=== PATIENT | female | born 1995 | race Caucasian/White ===

== ENCOUNTER 2024-10-02 11:04 | Emergency (ER) | payer BC, SELFPAY ==
--- NOTE | 2024-10-02 | ECG_ITS ---
Test Reason : Shortness of breath Blood Pressure : */* mmHG Vent. Rate : 56 BPM Atrial Rate : 56 BPM P-R Int : 198 ms QRS Dur : 90 ms QT Int : 402 ms P-R-T Axes : 2 185 20 degrees QTcB Int : 387 ms Sinus bradycardia Right superior axis deviation Low voltage QRS Abnormal ECG No previous ECGs available Referred By: Homar Razo Electronically Signed By: José Luis Nichols
--- NOTE | ~2024-10-02 | XR_ITS ---
EXAMINATION: XR CHEST 2 VIEWS HISTORY: pain COMPARISON: There are no prior studies for comparison. FINDINGS: PA and lateral views of the chest are submitted. The lungs are expanded and clear. There is no pleural effusion, pneumothorax, or pulmonary vascular congestion. The heart is normal in size. The bones are intact. XR/XR chest 2V IMPRESSION: Normal examination of the chest. Electronically signed by: Montana Odom MD 10/02/2024 11:55 AM EDT
--- NOTE | ~2024-10-02 | CT_ITS ---
EXAMINATION: CT ANGIOGRAM CHEST CLINICAL INFORMATION: Dyspnea, rule out PE. COMPARISON: None available. TECHNIQUE: Multiple axial images were obtained through the chest after the administration of 50 mL of Omnipaque 350 intravenous contrast. Extensive vascular post-processing including two-dimensional and three-dimensional reformatted images were created and reviewed on an independent workstation. This CT examination was performed using dose optimization techniques as appropriate, variously including the following: *Automated exposure control *Adjustment of mA and/or kV according to patient size (this includes techniques or standardized protocols for targeted exams where dose is matched to indication/reason for exam; i.e. extremities or head) *Use of iterative reconstruction technique FINDINGS: VASCULAR: There is no evidence of pulmonary embolus. Main pulmonary artery is normal in size. The aorta is normal in caliber and course. The heart size is normal. There is no pericardial effusion. Great vessels branch normally and are patent. LUNGS: The lungs are clear bilaterally. The small airways are normal. There is no effusion or pneumothorax. There is no interstitial lung disease. The central airways are patent. There are no suspicious nodules. PLEURA: There is no pleural effusion. No pleural mass or thickening. MEDIASTINUM: A small amount of triangular soft tissue opacity in the anterior/superior mediastinum is consistent with thymic remnant. There is no mass or lymphadenopathy. The esophagus is normal. AXILLA/CHEST WALL: No mass or lymphadenopathy. Normal appearance. UPPER ABDOMEN: Imaged upper abdominal contents appear normal. OSSEOUS STRUCTURES: No suspicious lytic or blastic bone lesions. Normal appearance. CT/CT angio chest PE protocol IMPRESSION: 1. No evidence of pulmonary embolus. 2. No evidence of acute aortic syndrome. 3. The lungs are clear without active disease. Electronically signed by: Jet Hidalgo MD 10/02/2024 04:14 PM EDT
--- NOTE | ~2024-10-02 | CT_ITS ---
EXAMINATION: CT SOFT TISSUE NECK WITHOUT CONTRAST CLINICAL INFORMATION: Dyspnea, feels obstruction. COMPARISON: None available. TECHNIQUE: Following the intravenous administration of 100 mL of Omnipaque 350 intravenous contrast, helical imaging was performed in the axial plane with generation of coronal and sagittal reformatted images. This CT examination was performed using dose optimization techniques as appropriate, variously including the following: *Automated exposure control *Adjustment of mA and/or kV according to patient size (this includes techniques or standardized protocols for targeted exams where dose is matched to indication/reason for exam; i.e. extremities or head) *Use of iterative reconstruction technique FINDINGS: -Study is significantly limited without the benefit of IV contrast. Lymph Nodes: -No abnormal lymphadenopathy. Carotid Sheath Structures: -Normal. Salivary Glands: -Normal. Tongue Base/Floor of Mouth: -Normal Mucosal Space: -Normal. No lesions. Airway is maintained. Visceral Space: -Thyroid gland: Normal. -Larynx is normal. -Subglottic trachea is patent. Retropharangeal Space: - Normal. Parapharyngeal Fat Planes: -Normal. Car Groomer Spaces: -Normal. Anterior Cervical Space: -Normal. Imaged Intracranial Contents: -No mass effect, edema, or abnormal enhancement. Cortical and dural venous sinuses are patent. The skull base is normal. Globes and Orbits: -Normal. Paranasal Sinuses/Mastoids/Tympanic Spaces: -Normally aerated bilaterally. Lung Apices and Superior Mediastinal Structures: -Refer to the dedicated chest CT performed concurrently. Bony Structures: -No suspicious bone lesions. No fractures. -Normal TM joints. CT/CT soft tissue neck wo IV con IMPRESSION: Study somewhat limited without the benefit of IV contrast. 1. No acute findings in the neck. No mass or abnormal lymphadenopathy. Airway is maintained throughout. Electronically signed by: Jet Hidalgo MD 10/02/2024 04:09 PM EDT
[2024-10-02 11:14] VITALS: BP 134/87; PULSE 70; RESP 18; TEMP 36.8; O2SAT 98; BMI 37.8
--- NOTE | 2024-10-02 11:15 | ED_ITS ---
HPI - General Adult General Chief complaint: Dyspnea Stated complaint: SOB Time Seen by Provider: 10/02/24 12:59 Source: patient and other (patient's boyfriend) Mode of arrival: ambulatory Limitations: no limitations History of Present Illness ED Provider: Aisha Avilez PA-C HPI narrative: 29 y.o female with no reported past medical history reports to the ED with a chief complaint of shortness of breath while exercising and at rest. Patient reports that she feels as if she cannot take a full breath, this has been worsening over the past 2 weeks and her PCP advised her to come to the emergency room. She states that she has had breathing issues since she was 11, but has seen a switch tender and does not have asthma. Patient states that she has always has neck pain, and her breathing feels worse when she contracts her chin - specifically like she has something in her throat that goes backwards. Patient denies dizziness, syncope, chest pain or abdominal pain. MD complaint: SOB with exercise and rest Relieving factors: none Exacerbating factors: movement Associated symptoms: shortness of breath Related Data Previous Rx's ?Medication ?Instructions ?Recorded albuterol sulfate 90 mcg/actuation 1 puff inhalation QID PRN before 10/02/24 aerosol inhaler exercise #8.5 grams Allergies Allergy/AdvReac Type Severity Reaction Status Date / Time oyster extract Allergy Unknown Verified 10/02/24 11:18 peanut Allergy Unknown Verified 10/02/24 11:18 Penicillins Allergy Unknown Verified 10/02/24 11:18 Review of Systems 2 Constitutional: Constitutional: Reports no additional constitutional complaints, Denies chills, Denies fever(s) and Denies night sweats Eyes: Eyes: Reports no additional eye complaints, Denies blurry vision, Denies change in vision, Denies diplopia, Denies eye discharge, Denies loss of vision and Denies eye pain ENT: Denies dizziness Comments: globus sensation when laying down Cardiovascular: Cardiovascular: Reports no additional cardiovascular complaints, Denies chest pain, Denies lightheadedness, Denies Loss of Consciousness, Reports dyspnea and Reports dyspnea on exertion (and without) Respiratory: Respiratory: Reports dyspnea and Reports dyspnea on exertion (and without) Gastrointestinal: Gastrointestinal: Reports no additional gastrointestinal complaints, Denies abdominal pain, Denies melena, Denies hematochezia, Denies change in bowel habits and Denies change in stool character Genitourinary: Genitourinary: Denies hematuria, Denies urinary frequency, Denies dysuria, Denies urinary incontinence, Denies urinary hesitancy and Denies urinary urgency Musculoskeletal: Musculoskeletal: Reports no additional musculoskeletal complaints, Denies numbness and Denies tingling Neurologic: Denies dizziness, Denies loss of vision, Denies numbness and Denies tingling Psychiatric: Psychiatric: Reports no additional psychiatric complaints Endocrine: Endocrine: Reports no additional endocrine complaints Hematologic/Lymphatic: Hematologic/Lymphatic: Reports no additional hematologic/lymphatic complaints Allergic/Immunologic: Allergic/Immunologic: Reports no additional allergic/immunologic complaints PMFSH Past Medical History Attestation statement: The following information was validated with the patient. (all information validated with the patient's boyfriend) Source: old records reviewed, nursing notes reviewed and other (patient's boyfriend provided additional history and confirmed the history provided by the patient. ) Social History Social History Smoked in Last 30 Days: No Substance Use Type: Marijuana Substance Use Frequency: Occasionally Advance Directives: No Advance Directives Information Provided: Yes Physical Exam ED Vital Signs: Vital Signs - 24 hr 10/02/24 11:14 10/02/24 12:00 10/02/24 13:14 Temperature 98.3 F 97.3 F Pulse Rate 70 62 70 Respiratory Rate 18 16 13 Blood Pressure 134/87 113/58 L 126/80 Pulse Oximetry 98 99 100 Oxygen Delivery Method Room Air Room Air 10/02/24 14:00 10/02/24 16:00 10/02/24 16:49 Temperature 98.1 F 98.3 F 98.3 F Pulse Rate 62 81 81 Respiratory Rate 16 16 16 Blood Pressure 121/70 100/63 100/63 Pulse Oximetry 100 98 98 Oxygen Delivery Method Room Air Room Air Room Air BMI result Body Mass Index 37.8 Const General: cooperative, no acute distress, alert and awake Nutritional Appearance: well nourished Orientation/consciousness: patient oriented x3 HENMT Head: Yes normal to inspection and Yes atraumatic Ears: hearing grossly normal bilaterally and external ears normal General nose exam: Normal external nose present, no nasal discharge noted and no epistaxis Face and sinus: Yes normal facial exam, No abrasion and No laceration Mouth: Normal oral and palatal mucosa present, no drooling and no muffled voice Eyes General: appearance normal, both eyes and all related structures Periorbital: periorbital findings normal Eyelids: Yes eyelids normal Conjunctivae: conjunctivae normal Pupils: Equal, round and reactive pupils present EOM: EOMs intact bilaterally Neck Neck: Yes normal visual inspection, Yes full ROM and Yes no lymphadenopathy Resp Effort & Inspection: normal respiratory effort and able to speak in complete sentences Neuro General: patient oriented x3, moves all extremities and CN's II-XI intact bilaterally Cranial nerves: Yes Equal, round and reactive pupils present Cognition (Neuro): normal cognition Extrem General: Yes normal to inspection, Yes full ROM and Yes capillary refill normal Psych Appearance: grossly normal Mental Status: mental status grossly normal Affect: normal affect Attitude: cooperative Thought process: Normal thought process present Thought content: Normal thought content present Insight: Good insight present (Psych) Course Course Course Narrative: RME, this is a rapid medical exam performed by Jonathon Razo please refer to primary provider for complete H&P- 29-year-old female presents for evaluation of worsening shortness of breath for the last couple of weeks. She reports that her symptoms are not interfering with her workouts and she has not been sleeping at night. Plan for EKG, chest x-ray, labs. Medications Administered Discontinued Medications Generic Name Dose Route Start Last Admin Trade Name Freq PRN Reason Stop Dose Admin Iohexol 65 ml 10/02/24 15:54 10/02/24 15:54 Iohexol 350 Mg/Ml 100 Ml Infus..Btl IV 10/02/24 15:55 65 ml ONCE ONE Administration Medical Decision Making Medical Decision Making [facility] Narrative: Patient is a 29 year old assigned female at with no reported medical history presenting to the emergency department today with shortness of breath and globus sensation in her throat when laying. Patient's physical exam was unremarkable. Patient's blood work was unremarkable. Patient's EKG was unremarkable. Patient's chest x-ray, CT PE study of the chest, and CT soft tissue of the neck showed no acute process. I explained my physical exam findings as well as all test results to the patient and the patient's boyfriend. I answered all questions asked by the patient and the patient's boyfriend. Patient prescribed an albuterol inhaler to use prior to exercising. I stressed the importance of the patient taking her medication as directed (either prescribed or as the over the counter packaging recommends). I stressed the importance of the patient following up with her primary care provider. I stressed the importance of the patient returning to the emergency department immediately if her symptoms were to worsen or if she were to develop any dizziness, shortness of breath, difficulty breathing, chest pain, blurry vision, loss of vision, nausea, vomiting, abdominal pain, fever, chills, back pain, or any other complaints. Patient verbalized agreement and understanding with this treatment plan and discharge. Differential Diagnosis Differential Diagnoses: The differential diagnosis associated with the presentation includes SOB of unknown etiology Exercise induced reactive airway disease Globus sensation Sleep apnea Admission/Observation Consideration of admission/observation: Escalation of care including admission/observation considered Patient would have been admitted to the hospital had her work up had any findings where hospital admission was appropriate and her clinical presentation warranted hospital admission. Lab Data [facility] Lab Attestation statement: I reviewed the patient's lab results. My interpretation of these results are in the [facility] Rationale portion of this note. 10/02/24 11:38 10/02/24 11:37 Labs: Lab Results 10/02/24 10/02/24 10/02/24 Range/Units 11:37 11:38 11:59 WBC 8.2 (4.8-10.8) X10*3/uL RBC 4.43 (4.20-5.50) X10*6/uL Hgb 13.1 (12.0-16.0) g/dl Hct 39.2 (37.0-47.0) % MCV 88.5 (80.0-98.0) fL MCH 29.6 (27.0-33.0) pg MCHC 33.4 (31.0-35.0) g/dl RDW 12.3 (11.0-16.0) % Plt Count 244 (160-400) X10*3/uL MPV 9.7 (9.4-12.3) fL Immature Gran % (Auto) 0.2 (0.0-0.4) % Neut % (Auto) 60.2 (45-73) % Lymph % (Auto) 30.6 (20-40) % [place] % (Auto) 7.6 (2-11) % Eos % (Auto) 1.0 (0-4) % Baso % (Auto) 0.4 (0-2) % Lymph # (Auto) 2.5 (1.2-4.9) X10*3/uL [place] # (Auto) 0.6 (0.1-1.2) X10*3/uL Eos # (Auto) 0.1 (0.0-0.4) X10*3/uL Baso # (Auto) 0.0 (0.0-0.2) X10*3/uL Abs Immat Gran (auto) 0.02 (0.00-0.03) X10*3/uL Absolute Neuts (auto) 5.0 (2.0-8.3) x10*3/uL Absolute Nucleated RBC 0.000 (0.0-0.012) X10*3/uL Nucleated RBC % (auto) 0.0 (0.0-0.2) /100WBC Sodium 141 (135-145) mmol/L Potassium 4.2 (3.3-5.1) mmol/L Chloride 107 (96-108) mmol/L Carbon Dioxide 28 (22-29) mmol/L Anion Gap 10 L (12-20) BUN 20 H (9-16) mg/dL Creatinine 0.82 (0.5-1.4) mg/dL Estim Creat Clear Calc 114.2 Estimated GFR > 60 Random Glucose 87 (60-115) mg/dL Calcium 9.5 (8.4-10.2) mg/dL Total Bilirubin 0.3 (0.0-1.0) mg/dL AST 26 (5-31) U/L ALT 18 (0-31) U/L Alkaline Phosphatase 67 (39-117) U/L Troponin I High Sens 4.7 (<3.5-17.0) ng/L Total Protein 7.2 (6.5-8.0) g/dL Albumin 4.5 (3.5-5.0) g/dL TSH 1.52 (0.32-4.0) uIU/mL Beta HCG, Quant < 2 mIU/mL Urine Color Yellow Urine Appearance Clear Urine pH 6.0 (5.0-9.0) Ur Specific [place] 1.010 (1.005-1.025) Urine Protein Negative (Neg-Trace) mg/dL Urine Glucose (UA) Negative (Negative) mg/dL Urine Ketones Negative (Negative) mg/dL Urine Blood Negative (Negative) Urine Nitrite Negative (Negative) Ur Leukocyte Esterase Negative (Negative) Urine RBC 0-2 (0-2) /HPF Urine WBC 0-5 (0-5) /HPF Ur Squamous Epith Cells 0-2 (0-2) /HPF Urine Bacteria None Seen (None Seen) Hyaline Casts 0-2 (0-2) /LPF Influenza Type A (PCR) NEGATIVE (Negative) Influenza Type B (PCR) NEGATIVE (Negative) RSV RNA Qual (PCR) NEGATIVE (Negative) SARS-CoV-2 RNA (RT-PCR) NEGATIVE (Negative) Independent Interpretation I performed an independent interpretation of an: EKG, Plain X-Ray and CT Scan Interpretation: My interpretation is in agreement with the radiologist's impression of these imaging studies. L EXAMINATION: XR CHEST 2 VIEWS HISTORY: pain COMPARISON: There are no prior studies for comparison. FINDINGS: PA and lateral views of the chest are submitted. The lungs are expanded and clear. There is no pleural effusion, pneumothorax, or pulmonary vascular congestion. The heart is normal in size. The bones are intact. XR/XR chest 2V IMPRESSION: Normal examination of the chest. Electronically signed by: Montana Odom MD 10/02/2024 11:55 AM EDT Dictated By: Montana Odom MD Signed By: Electronically signed by Montana Odom MD 10/02/24 1155 Report Number: [id number]: Total DLP = 338.38 mGy-cm EXAMINATION: CT ANGIOGRAM CHEST CLINICAL INFORMATION: Dyspnea, rule out PE. COMPARISON: None available. TECHNIQUE: Multiple axial images were obtained through the chest after the administration of 50 mL of Omnipaque 350 intravenous contrast. Extensive vascular post-processing including two-dimensional and three- dimensional reformatted images were created and reviewed on an independent workstation. This CT examination was performed using dose optimization techniques as appropriate, variously including the following: *Automated exposure control *Adjustment of mA and/or kV according to patient size (this includes techniques or standardized protocols for targeted exams where dose is matched to indication/reason for exam; i.e. extremities or head) *Use of iterative reconstruction technique FINDINGS: VASCULAR: There is no evidence of pulmonary embolus. Main pulmonary artery is normal in size. The aorta is normal in caliber and course. The heart size is normal. There is no pericardial effusion. Great vessels branch normally and are patent. LUNGS: The lungs are clear bilaterally. The small airways are normal. There is no effusion or pneumothorax. There is no interstitial lung disease. The central airways are patent. There are no suspicious nodules. PLEURA: There is no pleural effusion. No pleural mass or thickening. MEDIASTINUM: A small amount of triangular soft tissue opacity in the anterior/superior mediastinum is consistent with thymic remnant. There is no mass or lymphadenopathy. The esophagus is normal. AXILLA/CHEST WALL: No mass or lymphadenopathy. Normal appearance. UPPER ABDOMEN: Imaged upper abdominal contents appear normal. OSSEOUS STRUCTURES: No suspicious lytic or blastic bone lesions. Normal appearance. CT/CT angio chest PE protocol IMPRESSION: 1. No evidence of pulmonary embolus. 2. No evidence of acute aortic syndrome. 3. The lungs are clear without active disease. Electronically signed by: Jet Hidalgo MD 10/02/2024 04:14 PM EDT Dictated By: Jet Hidalgo MD Signed By: Electronically signed by Jet Hidalgo MD 10/02/24 1614 Report Number: [id number]: Total DLP = 629.62 mGy-cm EXAMINATION: CT SOFT TISSUE NECK WITHOUT CONTRAST CLINICAL INFORMATION: Dyspnea, feels obstruction. COMPARISON: None available. TECHNIQUE: Following the intravenous administration of 100 mL of Omnipaque 350 intravenous contrast, helical imaging was performed in the axial plane with generation of coronal and sagittal reformatted images. This CT examination was performed using dose optimization techniques as appropriate, variously including the following: *Automated exposure control *Adjustment of mA and/or kV according to patient size (this includes techniques or standardized protocols for targeted exams where dose is matched to indication/reason for exam; i.e. extremities or head) *Use of iterative reconstruction technique FINDINGS: -Study is significantly limited without the benefit of IV contrast. Lymph Nodes: -No abnormal lymphadenopathy. Carotid Sheath Structures: -Normal. Salivary Glands: -Normal. Tongue Base/Floor of Mouth: -Normal Mucosal Space: -Normal. No lesions. Airway is maintained. Visceral Space: -Thyroid gland: Normal. -Larynx is normal. -Subglottic trachea is patent. Retropharangeal Space: - Normal. Parapharyngeal Fat Planes: -Normal. Oven Heater Helper Spaces: -Normal. Anterior Cervical Space: -Normal. Imaged Intracranial Contents: -No mass effect, edema, or abnormal enhancement. Cortical and dural venous sinuses are patent. The skull base is normal. Globes and Orbits: -Normal. Paranasal Sinuses/Mastoids/Tympanic Spaces: -Normally aerated bilaterally. Lung Apices and Superior Mediastinal Structures: -Refer to the dedicated chest CT performed concurrently. Bony Structures: -No suspicious bone lesions. No fractures. -Normal TM joints. CT/CT soft tissue neck wo IV con IMPRESSION: Study somewhat limited without the benefit of IV contrast. 1. No acute findings in the neck. No mass or abnormal lymphadenopathy. Airway is maintained throughout. Electronically signed by: Jet Hidalgo MD 10/02/2024 04:09 PM EDT Dictated By: Jet Hidalgo MD Signed By: Electronically signed by Jet Hidalgo MD 10/02/24 1609 Radiology Impression Discussion of test interpretation with radiology: I have reviewed the radiologist's reading. Independent Historian Clinical information obtained from an independent historian. History obtained from or confirmed by: Other (patient's boyfriend provided additional history and confirmed the history provided by the patient.) Discharge Plan Discharge Clinical Impression: Shortness of breath Patient Disposition: Home, Self-Care Instructions: Shortness of Breath (ED) Additional Instructions: Your work up today was reassuring that there is no emergent process causing your symptoms. Follow up with your primary care provider. Consider establishing and following up with cardiology for a cardiac work up, a neurologist for a sleep study, and an ENT group for the globus sensation. Return to the emergency department immediately if your symptoms worsen or if you develop any numbness, tingling, dizziness, shortness of breath, difficulty breathing, chest pain, blurry vision, loss of vision, nausea, vomiting, abdominal pain, fever, chills, back pain, or any other complaints. Please see the information below about our Patient Portal. If you are not yet enrolled in the [facility] Patient Portal, you will receive an enrollment email invitation following your visit to any [facility] [place] [place] care setting. You may also self-enroll in the Patient Portal by visiting our website: [email or web address] The following information is required to access the Patient Portal: - [place] [facility] [place] - Your personal home email address (must match what is in your electronic medical record, Registration staff can assist with this) - Name - Date of Capabilities of the Patient Portal: - Message some providers - View upcoming appointments - Access your health summary, medical history, and visit history - View current conditions and allergies - View procedure and lab results - View your medications, including guidelines, side effects, and precautions - Complete pre-appointment questionnaires requested by your provider - Ready summary reports of your office visits and procedures To access the Patient Portal Mobile [employer], follow these directions: - Search Red[employer]em[employer] in the [employer] Store or [employer] Store - Download the [employer]te - Search for [facility] - Enter your login/password Prescriptions: New albuterol sulfate 90 mcg/actuation HFA aerosol inhaler 1 puff inhalation QID PRN (Reason: before exercise) Qty: 8.5 0RF Referrals: [facility] [Provider Group] (Call to establish and follow up with an ENT specialist for the globus sensation in your throat. ) [facility] [facility] [Provider Group] (Call to establish and follow up with a certified professional controller for a cardiology work up as a reason for your shortness of breath. ) [facility] [place] [facility] [Provider Group] (Call to establish and follow up with a neurologist for a sleep study given your symptoms and known snoring. ) Hilario Bellamy MD [Primary Care Provider] - Interventions: ED Discharge Assessment Last Done: 10/02/24 16:49 Discharge Date/Time: 10/02/24 16:50 Print Language: Swedish
[2024-10-02 11:44] LABS: MANUAL DIFF FLAG NO
[2024-10-02 11:47] LABS: Basophils Percent Auto 0.4 % (0-2); Eosinophils Absolute Auto 0.1 X10*3/uL (0.0-0.4); Hematocrit 39.2 % (37.0-47.0); Hemoglobin 13.1 g/dl (12.0-16.0); Imm Gran Abs Auto 0.02 X10*3/uL (0.00-0.03); Imm Gran Pct Auto 0.2 % (0.0-0.4); Lymphocytes Absolute Auto 2.5 X10*3/uL (1.2-4.9); Lymphocytes Percent Auto 30.6 % (20-40); Mean Corpuscular HGB Conc 33.4 g/dl (31.0-35.0); Mean Corpuscular Hemoglobin 29.6 pg (27.0-33.0); Mean Corpuscular Volume 88.5 fL (80.0-98.0); Mean Platelet Volume 9.7 fL (9.4-12.3); Monocytes Absolute Auto 0.6 X10*3/uL (0.1-1.2); Monocytes Percent Auto 7.6 % (2-11); Neutrophils Percent Auto 60.2 % (45-73); Platelet Count 244 X10*3/uL (160-400); Red Blood Count 4.43 X10*6/uL (4.20-5.50); Red Cell Distribution Width 12.3 % (11.0-16.0); White Blood Count 8.2 X10*3/uL (4.8-10.8)
[2024-10-02 12:00] VITALS: BP 113/58; PULSE 62; RESP 16; TEMP 36.3; O2SAT 99
[2024-10-02 12:01] LABS: Alanine Aminotransferase 18 U/L (0-31); Albumin Level 4.5 g/dL (3.5-5.0); Alkaline Phosphatase 67 U/L (39-117); Anion Gap 10 (12-20); Aspartate Amino Transferase 26 U/L (5-31); Bilirubin Total 0.3 mg/dL (0.0-1.0); Blood Urea Nitrogen 20 mg/dL (9-16); Calcium 9.5 mg/dL (8.4-10.2); Carbon Dioxide 28 mmol/L (22-29); Chloride 107 mmol/L (96-108); Creatinine Clr Calc Pharmacy 114.2; Estimated Glomerular Filt Rate > 60; Glucose Random 87 mg/dL (60-115); Potassium 4.2 mmol/L (3.3-5.1); Sodium 141 mmol/L (135-145); Total Protein 7.2 g/dL (6.5-8.0)
[2024-10-02 12:09] LABS: Troponin-I High Sensitivity 4.7 ng/L (<3.5-17.0)
[2024-10-02 12:11] LABS: HCG Quantitative < 2 mIU/mL
[2024-10-02 12:12] LABS: Appearance Urine Clear; Color Urine Yellow; Glucose Urine UA Negative (Negative); Leukocyte Esterase Urine Negative (Negative); Nitrite Urine Negative (Negative); Urine Blood Negative (Negative); Urine Ketones Negative (Negative); Urine Protein Negative (Neg-Trace)
[2024-10-02 12:16] LABS: Bacteria Urine None Seen (None Seen); Hyaline Casts Urine 0-2 /LPF (0-2); RBC Urine 0-2 /HPF (0-2); Squamous Epithelial Cell Urine 0-2 /HPF (0-2); WBC Urine 0-5 /HPF (0-5)
[2024-10-02 12:24] LABS: TSH reflex Free T4 1.52 uIU/mL (0.32-4.0)
[2024-10-02 12:25] LABS: Influenza A PCR NEGATIVE (Negative); Influenza B PCR NEGATIVE (Negative); Resp Syncy Virus RNA Qual PCR NEGATIVE (Negative); SARS COV2 PCR INHOUSE NEGATIVE (Negative)
[2024-10-02 13:14] VITALS: BP 126/80; PULSE 70; RESP 13; O2SAT 100
[2024-10-02 14:00] VITALS: BP 121/70; PULSE 62; RESP 16; TEMP 36.7; O2SAT 100
[2024-10-02] MEDS: iohexoL 350 MG/ML 100 ML INFUS..BTL 65 ML IV (15:54)
[2024-10-02 16:00] VITALS: BP 100/63; PULSE 81; RESP 16; TEMP 36.8; O2SAT 98
[2024-10-02 16:49] VITALS: BP 100/63; PULSE 81; RESP 16; TEMP 36.8; O2SAT 98
== END 2024-10-02 16:50 | disposition home or self-care (01) ==
PROVIDERS: Physician Assistant; Emergency Provider Emergency Medicine; PCP Family Medicine
DX: R06.02 Shortness of breath (principal); R10.2 Pelvic and perineal pain; R07.89 Other chest pain; R00.1 Bradycardia, unspecified; Z79.899 Other long term (current) drug therapy; Z03.818 Encounter for observation for suspected exposure to other biological agents ruled out
CPT/HCPCS: 0241U; 36415; 70490; 71046; 71275; 80053; 81001; 84443; 84484; 84702; 85025; 93005; 99284; 99285; Q9967

== ENCOUNTER → 2024-10-02 11:23 | Outpatient (BNV) | payer SELFPAY | PROVIDERS: PCP Family Medicine; Visit Provider Radiology Diagnostic Radiology | DX: R06.00 Dyspnea, unspecified (principal); R07.9 Chest pain, unspecified | CPT/HCPCS: 70490; 71046; 71275 ==

== ENCOUNTER → 2024-10-02 11:25 | Outpatient (BNV) | payer BC, SELFPAY | PROVIDERS: Emergency Provider Emergency Medicine; PCP Family Medicine; Visit Provider Internal Medicine Cardiovascular Disease | DX: R00.1 Bradycardia, unspecified (principal) | CPT/HCPCS: 93010 ==

== ENCOUNTER 2024-11-24 14:01 | Outpatient (AMB) | payer BC, SELFPAY ==
--- NOTE | 2024-11-24 14:06 | MHC.OFFVIS ---
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 Patient was seen at ED([facility])for shortness of breath. No asthma diagnosis(did PFT and came back clear) and referred her to undergo sleep study. No hx of sleep study. Patient also states weight gain about 20 pounds. Accompanied by: Self / Same As Patient Allergies oyster extract Allergy (Verified 11/24/24 14:10) Unknown peanut Allergy (Verified 11/24/24 14:10) Unknown Penicillins Allergy (Verified 11/24/24 14:10) Unknown HPI Comments Details: 29 year old female referred to us for evaluation of KATHY by her PCP, Josesito in [facility]. She feels like she has air hunger, always feels SOB since childhood, denies asthma, but had a recent URI and congestion. Sleeping snoring at night 20lbs weight gain. Difficulty falling asleep at night, she takes THC or valerian tea at night to induced sleep. She grinds her teeth at night, her neck and jaw feel stiff and tense with limited lateral ROM and limited ext and flexion. Denies parasomnias, talks in her sleep per her b/f. She had a tonsilectomy at 21 due to chronic bleeding abscess. She denies polyps and or a deviated septum. 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 She has ruminating thoughts, paralyzed by inability to make decisions. She sees a communications specialist every 2 months used be anemic, has IBS and was a vegetarian for 6 years. She takes a Women's one a day multi vitamin, omega and magnesium daily. Feels chronically fatigued and sleepy on her commute to work. She does not smoke, or drink alcohol. Denies use of stimulants. Reviewed ED note and labs with patient today. [facility] Social History Substance Use Type: Marijuana Physical Exam Vital Signs: Last Vital Signs Pulse 63 11/24/24 14:08 Pulse Ox 96 11/24/24 14:08 Oxygen Delivery Method Room Air 11/24/24 14:08 BMI result Body Mass Index 37.5 Const General: cooperative and no acute distress Nutritional Appearance: overweight Orientation/consciousness: patient oriented x3 Limitations: no limitations HEENT Face and sinus: Yes face symmetric Mouth: other Teeth and gingiva: other (M[place]ampti score is 3) Eyes Pupils: Equal, round and reactive pupils present Neck Other: pain on extension and flexion of neck with limited rom. Resp Effort & Inspection: normal respiratory effort and able to speak in complete sentences Neuro General: patient oriented x3 and moves all extremities Cranial nerves: Yes Facial sensation intact/muscles of mastication intact, Yes Equal, round and reactive pupils present, Yes Normal accommodation reflex present, Yes Bilaterally intact EOM present, Yes Ability to bilaterally rotate head present (limited rom on lateral rotation with stiffness on ext and flexion.) and Yes Ability to bilaterally elevate shoulders present Gait exam (Neuro): Normal gait present Motor exam (neuro): 5/5 motor strength present throughout and Normal motor muscle tone present throughout Psych Affect: normal affect Thought process: Normal thought process present Thought content: Normal thought content present Insight: Good insight present (Psych) Judgement: Good judgement present (Psych) Results Reviewed Results Reviewed: 09/2024 CT/CT soft tissue neck wo IV con IMPRESSION: Study somewhat limited without the benefit of IV contrast. 1. No acute findings in the neck. No mass or abnormal lymphadenopathy. Airway is maintained throughout. CT Chest 09/2024 IMPRESSION: 1. No evidence of pulmonary embolus. 2. No evidence of acute aortic syndrome. 3. The lungs are clear without active disease. Assessment & Plan Assessment & Plan (1) Sleep difficulties: Comment: HST Code(s): G47.9 - Sleep disorder, unspecified Category: Medical (2) Anxiety: Comment: lexapro 5mg po Code(s): F41.9 - Anxiety disorder, unspecified Category: Medical (3) Excessive daytime sleepiness: Code(s): G47.19 - Other hypersomnia Category: Medical Plan HST r/o KATHY and evaluate her sleep. Start Melatonin 3mg po daily as needed to induce sleep. Labs r/o anemia and or nutritional deficiencies. Anxiety and depression with panic attacks, Start Lexapro 5mg po daily will titrate up to 10mg in 2 weeks, continue seeing your therapist every 2 weeks and practice good self care daily with positive affirmations. F/U in 3 months. Orders: Orders IRON PROFILE Today G47.19 - Other hypersomnia, G47.9 - Sleep disorder, unspecified, R53.83 - Other fatigue Homocysteine Today G47.19 - Other hypersomnia, G47.9 - Sleep disorder, unspecified, R53.83 - Other fatigue Magnesium Today G47.19 - Other hypersomnia Methylmalonic Acid Today G47.19 - Other hypersomnia, G47.9 - Sleep disorder, unspecified, R53.83 - Other fatigue RT home sleep study Today G47.19 - Other hypersomnia Ferritin Today G47.19 - Other hypersomnia Vitamin D 25-OH Total Today G47.19 - Other hypersomnia Vitamin B12 and Folate Today G47.19 - Other hypersomnia Medications: New escitalopram oxalate (Lexapro) take one tablet in the am with breakfast. 5 mg PO DAILY 60 tabs 0RF depression 2 months MDD 5mg F41.9 - Anxiety disorder, unspecified, G47.19 - Other hypersomnia melatonin take 3mg po daily 3 hours prior to bedtime. 3 mg PO BEDTIME PRN 60 caps 1RF sleep 2 months MDD 3mg G47.9 - Sleep disorder, unspecified Patient Instructions: Sleep Hygiene provided: set a scheduled bedtime and wake time to help regulate the circadian rhythm and balance the release of pituitary hormones. Sleep in a dark room, temperatures below 68 degrees, and no devices n bed. Limit caffeinated products 6 hours prior to bed, and limit fluids 2-4 hours prior to bed. Gentle night yoga, diffusing essential oils, and playing soft music can be relaxing. For depression and Anxiety continue therapy, exercise and walk with Natalie as tolerable. Start Lexapro 5mg po daily with breakfast. Start melatonin 3mg po daily 3 hours prior to bedtime if it is too sedating, may use it every other night. Coding Level of Care Code New Pt Level 4 (84886) Diagnoses Sleep difficulties G47.9 Anxiety F41.9 Excessive daytime sleepiness G47.19 Time Spent (min) 40 Comment Evaluation of KATHY Sleep Questionnaire Difficulty falling asleep: Yes Difficulty staying asleep?: No Number of arousals: 0-1 Snoring: Yes Witnessed apneas: No Gasping arousals: No Nocturia: No GERD: No (only with alcohol) Vivid dreams: Yes (fear producing) Acting out dreams: No Abnormal behavior in sleep: Yes (talking) Abnormal movements in sleep: No Morning headaches: No Excessive daytime sleepiness: No Daytime naps: No Restless legs: No Hallucinations: No Sleep paralysis: Yes (2020) Drop attacks: No (stumble - drop foot? stumbles alot is clumsy) Sleep Study: No CPAP: No
[2024-11-24 14:08] VITALS: PULSE 63; O2SAT 96; BMI 37.5
--- OUTSIDE RECORDS SUMMARY | 2024-11-24 15:19 | XMS_ITS | Patient Health Record ---
Author Organization [facility] Address [address] [place] [address] Care Team Providers Care Fashion Styling Intern Name Role Phone Brody Pena MD Primary Care Provider Maggi Jeffries Unavailable [phone] Allergies Allergen (clinical drug ingredient) Drug/Non Drug Allergy documented on EMR Reaction Allergy Type Onset Date Status Penicillin hives Drug Allergy Active Reason For Referral No Information Medications Medication SIG (Take, Route, Frequency, Duration) Notes Start Date End Date Status Drospirenone-Ethinyl Estradiol Active Zinc Active Social History Tobacco Use: Social History Observation Description Date Details (start date - stop date) Never Smoker NA - NA Tobacco Use/Smoking Question Answer Notes Are you a: nonsmoker Additional Findings: Tobacco Non-User Current no n-smoker Tobacco use other than smoking: Question Answer Notes Are you an other tobacco user? No Problems No Known Problems Plan Of Treatment Pending Test Test Name Order Date [id number]-Ltut Destruction, 05-2609/17/2016 [id number] Destruction, 05-2610/15/2016 [id number]-Yddx Destruction, 05-2611/06/2016 [id number]-Vrxu Destruction, 05-2601/24/2018 Insurance Providers Payer Name Payer Address Payer Phone Subscriber Number Group Number Insured Name Patient Relationship to Insured Coverage Start Date Coverage End Date C[employer] [address] Max iaJOSE [phone] [id number] Destiny Maxwell Self - patient is the insured Medical (General) History Medical History History ICD Code Anemia Back,Hip,and Knee pain Chicken pox Surgical History Surgery Date(Month/Year) tonsillectomy 05/2014 wisdom teeth extraction 05/2013
== END 2024-11-24 15:20 | disposition home or self-care (01) ==
LOC: HO.HSMS 14:02
PROVIDERS: PCP Family Medicine; Visit Provider Physician Assistant Medical
DX: G47.9 Sleep disorder, unspecified (principal); F41.9 Anxiety disorder, unspecified; G47.19 Other hypersomnia
CPT/HCPCS: 99204

== ENCOUNTER → 2025-03-03 08:09 | Outpatient (REF) | payer BC, SELFPAY ==
--- OUTSIDE RECORDS SUMMARY | 2024-05-15 07:10 | XMS_ITS ---
Author Organization [facility] [employer] [facility] Address [address] [facility] [address] [place] [address] Care Team Providers Care Line Haul Owner Operator Name Role Phone ISIDRA FITZPATRICK, FREDO Primary Care Provider Marilin Lambert Unavailable [phone] REASON FOR VISIT ULTRA- CK IUD Encounters Encounter Location Date Provider Diagnosis [facility] [employer] [facility] [address] [facility] [address] [place] [address] 05/15/2024 Marilin Christian Plan Of Treatment Next Appt Details Provider Name:Marilin ross, 06/25/2025 02:40:00 PM, [address] [facility], [address], [place], [address], Progress Notes * JACKY MAGANADOB:[birth year] (29 yo F)Acc No.[id number]:05/15/2024 PROGRESS NOTES Patient: JACKY BOYD Appointment Provider: Mirza Christian M.D. :1995 A ge:28 Y S ex:Female Date:05/15/2024 Address:[address] [place], [place] [id number] Pcp:FREDO MINER MD Subjective: * Chief Complaints: * 1 . ULTRA- CK IUD. * Medical History: Objective: * Vitals: Assessment: Plan: * Treatment: * Images: Billing Information: * Visit Code: * Procedure Codes: * Electronic signature of Jasiel Christian MD on 03/03/2025 at 08:12 AM EDT Sign off status: Pending * Appointment Provider: Mirza Christian M.D. Date: 0 05/15/2024 Generated for Vidhi cervantes/Bob/Delmi on: 08:12 AM EDT
--- OUTSIDE RECORDS SUMMARY | 2024-05-19 04:00 | XMS_ITS ---
Author Organization [facility] [employer] Address [address] [facility] [address] [place] [address] Care Team Providers Care Blending Technician Name Role Phone ISIDRA FITZPATRICK, FREDO Primary Care Provider Marilin Lambert Unavailable [phone] REASON FOR VISIT CHECO IUD REPLACING KYLEENA Encounters Encounter Location Date Provider Diagnosis [facility] [employer] [address] [place] [address] 05/19/2024 Marilin Christian Plan Of Treatment Next Appt Details Provider Name:Marilin ross, 06/25/2025 02:40:00 PM, [address] [facility], [address], [place], [address], Progress Notes * JACKY MAGANADOB:[birth year] (29 yo F)Acc No.[id number]:05/19/2024 PROGRESS NOTES Patient: JACKY BOYD Appointment Provider: Mirza Christian M.D. :1995 A ge:28 Y S ex:Female Date:05/19/2024 Address:[address] [place] [address], [facility] Pcp:FREDO MINER MD Subjective: * Chief Complaints: * 1 . CHCEO IUD REPLACING KYLEENA. * Medical History: Objective: * Vitals: Assessment: Plan: * Treatment: * Images: Billing Information: * Visit Code: * Procedure Codes: * Electronic signature of Jasiel Christian MD on 03/03/2025 at 08:13 AM EDT Sign off status: Pending * Appointment Provider: Mirza Christian M.D. Date: 0 05/19/2024 Generated for Vidhi cervantes/Bob/Delmi on: 1 08:13 AM EDT
--- OUTSIDE RECORDS SUMMARY | 2024-06-19 11:10 | XMS_ITS ---
Author Organization [facility] [employer] [facility] Address [address] [facility] [address] [place] [address] Care Team Providers Care Ski Binding Fitter And Repairer Name Role Phone ISIDRA FITZPATRICK, FREDO Primary Care Provider Marilin Lambert Unavailable [phone] REASON FOR VISIT ULTRA- CK IUD Encounters Encounter Location Date Provider Diagnosis [facility] [employer] [facility] [address] [facility] [address] [place] [address] 06/19/2024 Marilin Christian Plan Of Treatment Next Appt Details Provider Name:Marilin ross, 06/25/2025 02:40:00 PM, [address] [facility], [address], [place], [address], Progress Notes * JACKY MAGANADOB:[birth year] (29 yo F)Acc No.[id number]:06/19/2024 PROGRESS NOTES Patient: JACKY BOYD Appointment Provider: Mirza Christian M.D. :1995 A ge:28 Y S ex:Female Date:06/19/2024 Address:[address] [place], [place] [id number] Pcp:FREDO MINER MD Subjective: * Chief Complaints: [...] 0 06/19/2024 Generated for Vidhi cervantes/Bob/Delmi on: 1 08:12 AM EDT
--- OUTSIDE RECORDS SUMMARY | 2024-06-26 05:50 | XMS_ITS ---
Author Organization [employer] [facility] Address [address] [facility] [address] [place] [address] Care Team Providers Care Bottle Blower Name Role Phone ISIDRA FITZPATRICK, FREDO Primary Care Provider Marilin Lambert Unavailable [phone] REASON FOR VISIT IUD FOLLOW UP Encounters Encounter Location Date Provider Diagnosis [facility] [employer] [facility] [address] [facility] [address] [place] [address] 06/26/2024 Marilin Christian Plan Of Treatment Next Appt Details Provider Name:Marilin ross, 06/25/2025 02:40:00 PM, [address] [facility], [address], [place], [address], Progress Notes * JACKY MAGANADOB:[birth year] (29 yo F)Acc No.[id number]:06/26/2024 Progress Note Patient: JACKY BOYD Appointment Provider: Mirza Christian M.D. :1995 A ge:28 Y S ex:Female Date:06/26/2024 Address:[address] [place], [place] [id number] Pcp:FREDO MINER MD Subjective: * Chief Complaints: [...] 06/26/2024 Generated for Vidhi cervantes/Bob/Delmi on: 1 08:12 AM EDT
--- OUTSIDE RECORDS SUMMARY | 2025-03-03 08:13 | XMS_ITS | Patient Health Record ---
Author Organization [facility] Address [address] [place] [address] Care Team Providers Care Outside Sales Representative Insurance Name Role Phone FREDO MINER MD Primary Care Provider Marilin Lambert [phone] Allergies Allergen (clinical drug ingredient) Drug/Non Drug Allergy documented on EMR Reaction Allergy Type Onset Date Status Penicillin Hives Drug Allergy Active Results Component Value Reference Range Notes SURGICAL PATHOLOGY Reviewed date:07/16/2024 08:19:56 AM Interpretation: Performing Lab:Testing performed or reported by [facility], a Service of [facility], [address] [place] [address] Indio Valencia MD, Remote Control Mirror Installer [facility]# [id number] Notes/Report: Patient Name: JACKY MAGANA Lab Patient : 1995 (Age: 28) Collection Date: 07/02/2024 Accession Date: 07/02/2024 Sign Out Date: 07/15/2024 Tissue Source: 1:ECC Final Diagnosis: Endocervix, curettage: - Mucus and scant endocervical tissue fragments (see note). Note: The scant quantity of tissue received may not be district sales representative of the endocervix. Primary Pathologist:Lesa Carter M.D.,Ph.D. electronically signed out by: Lesa Carter M.D.,Ph.D. / [facility] Clinical History: 28-year-old female, ASC-US, HPV DNA test positive Gross Description: Labeled ECC . Received in formalin is a biopsy brush. Teased from the brush and filtered from the formalin is a 1.0 x 1.0 x 0.2 cm aggregate of cloudy mucus which is submitted in toto in 1 cassette, multiple pieces, x 2. (KD)* As of July 20, 2023, the specimen processing and staining is performed at [facility], [address] [place] [address] (CLIA#[id number]). Its performance characteristics [facility]. Debby Dean M.D. Remote Control Mirror Installer of Surgical Pathology, Allen Angel M.D. Remote Control Mirror Installer Cytopathology Phone #: [phone], On-Call Pathologist: [id number] Test, Urine Reviewed date:07/02/2024 11:05:41 AM Interpretation: Performing Lab: Notes/Report: Test, Urine Negative PDF Report Reviewed date:06/25/2024 12:42:25 PM Interpretation: Performing Lab:[facility], [address] [place] [address], Phone - [phone], [facility] Notes/Report: Clinical Information:Vaginal/Cervical, LMP: 06/18, IUD Source.............Cervix;Vagina LMP / Prev Treat...BHO=[id number] Dates / Results....06/12/23 NIL Other..............IUD No. of containers..01 ThinPrep Vial [id number] IGP, CtNg Culture 30 Plus Reviewed date:06/25/2024 01:09:00 PM Interpretation: Performing Lab:[facility], [address] [place] [address], Phone - [phone], [facility] Notes/Report: Clinical Information:Vaginal/Cervical, LMP: 06/18, IUD Source.............Cervix;Vagina LMP / Prev Treat...DIT=[id number] Dates / Results....06/12/23 NIL Other..............IUD No. of containers..01 ThinPrep Vial DIAGNOSIS: EPITHELIAL CELL ABNORMALITY. ATYPICAL SQUAMOUS CELLS OF UNDETERMINED SIGNIFICANCE (ASC-US). Specimen adequacy: Satisfactory for evaluation. Endocervical and/or squamous metaplastic cells (endocervical component) are present. Clinician provided ICD10: Z01.419 Z72.51 Performed by: Homar Carmona , Sanitation Technician (ASCP) Electronically signed by: Denis Law MD, Pathologist . . Pathologist provided ICD10: R87.610 Note: The Pap smear is a screening test designed to aid in the detection of premalignant and malignant conditions of the uterine cervix. It is not a diagnostic procedure and should not be used as the sole means of detecting cervical cancer. Both false-positive and false-negative reports do occur. . Test Methodology: This liquid based ThinPrep(R) pap test was screened with the use of an image guided system. HPV Aptima Positive Negative This nucleic acid amplification test detects fourteen high-risk HPV types (16,18,31,33,35,39,45,51,5 2,56,58,59,66,68) without differentiation. HPV Genotype Reflex Criteria not met, HPV Genotype not performed. Chlamydia, Nuc. Acid Amp Negative Negative Gonococcus, Nuc. Acid Amp Negative Negative Reason For Referral No Information Medications Medication SIG (Take, Route, Frequency, Duration) Notes Start Date End Date Status Shannan 13.5 MG as directed Intrauterine Inserted 05/26/24 Active Immunizations Vaccine Route Administration Date Status Comme nts GARDASIL 9 IM Intramuscular 12/24/2017 Administered GARDASIL 9 IM Intramuscular 02/26/2018 Administered PT TO RETURN FOR 3RD AND FINAL DOSE IN 4 MONTHS. GARDASIL 9 IM Intramuscular 06/17/2018 Administered Social History Tobacco Use: Social History Observation Description Date Details (start date - stop date) Never Smoker NA - NA Sexual History Question Answer Notes Had sex in the past 12 months (vaginal, oral, or anal)? Yes with Men only Prevention strategies discussed: Other AUDIT-C (Standard) Question Answer Notes Did you have a drink contain ing alcohol in the past year? Yes How often did you have a dri nk containing alcohol in the past year? 2 to 3 times a week (3 points) How many drinks did you have on a typical day when you were drinking in the past year? 1 or 2 drinks (0 point) How often did you have six o r more drinks on one occasion in the past year? Never (0 point) Points 3 Interpretation Positive Tobacco Control (Standard) Question Answer Notes Tobacco use: Nonsmoker Problems Problem Type SNOMED Code ICD Code Onset Dates Problem Status W/U Status Risk Notes Problem Human papilloma virus deoxyribonucleic acid test positive, high risk on vaginal specimen (511475392880669) Cervical high risk human papillomavirus (HPV) DNA test positive (R87.810) Active confirmed Problem Gynecological examination normal (104613854094625) Encounter for gynecological examination (general) (routine) without abnormal findings (Z01.419) Active confirmed Problem Irregular Menstruation (02258159) Other specified irregular menstruation (N92.5) Active confirmed Vital Signs Heart Rate 78 /min 05/26/2024 Temperature 99.1 degrees Fahrenheit 07/02/2024 Blood pressure diastolic 78 mm Hg 07/02/2024 Height 64 in 07/02/2024 Blood pressure systolic 138 mm Hg 07/02/2024 Weight 208 lbs 07/02/2024 BMI 35.7 kg/m2 07/02/2024 Encounters Encounter Location Date Provider Diagnosis [address] [address] 05/15/2024 Marilin Christian Total [address] [address] 06/19/2024 Marilin Christian [address] [address] 04/15/2024 Marilin Christian Encounter for remova l and reinsertion of intrauterine contraceptive device Z30.[address] [address] 05/15/2024 Marilin Christian Encounter for routin e checking of intrauterine contraceptive device Z30.[address] [address] 05/26/2024 Marilinmanuel Christian Encounter for remova l and reinsertion of intrauterine contraceptive device Z30.[address] [address] 06/19/2024 Marilin Christian Encounter for gynecological examination (general) (routine) without abnormal findings Z01.419 ; High risk heterosexual behavior Z72.51 ; Encounter for routine checking of intrauterine contraceptive device Z30.431 and Other specified counseling Z71.[address] [place] [address] 07/02/2024 Marilin Christian Atypical squamous cells of undetermined significance on cytologic smear of cervix (ASC-US) R87.610 and Cervical high risk human papillomavirus (HPV) DNA test positive R87.[address] [address] 04/13/2024 Marilin Christian Total [address] [address] 05/15/2024 Marilin Christian [address] [address] 06/25/2024 Marilin Christian [address] [address] 06/30/2024 Marilin Christian Assessments Encounter Date Diagnosis (ICD Code) Assessment Notes Treatment Notes Treatment Clinical Notes Section Notes 04/15/2024 Encounter for removal and reinsertion of intrauterine contraceptive device (ICD-10 - Z30.433) DISCUSSED BENEFITS AND RISKS OF IUD USE. SHE HAS NO CONTRAINDICATIONS AND ACCEPTS RISKS. 05/15/2024 Encounter for routine checking of intrauterine contraceptive device (ICD-10 - Z30.431) PELVIC ULTRASOUND WAS ORDERED TO CHECK IUD PLACEMENT AND THIS SHOWED THE IUD HAD BEEN DISPLACED. THE INFERIOR LIP OF THE IUD IS 2.4 CM ABOVE THE EXTERNAL CERVICAL OS. DISCUSSED THE RESULTS WITH THE PAT AND RECOMMENDED REMOVAL OF THE IUD AND REPLACEMENT WITH SHANNAN IUD. SHE AGREED. WE WILL SCHEDULE IUD REMOVAL AND REPLACEMENT SOON. MISO/MOTRIN 05/26/2024 Encounter for removal and reinsertion of intrauterine contraceptive device (ICD-10 - Z30.433) 06/19/2024 Encounter for gynecological examination (general) (routine) without abnormal findings (ICD-10 - Z01.419) PAP TEST WITH HPV TYPING WAS OBTAINED. No Urine 07/02/2024 Atypical squamous cells of undetermined significance on cytologic smear of cervix (ASC-US) (ICD-10 - R87.610) DISCUSSED NORMAL FINDINGS ON COLPOSCOPY. CERVIX AND VAGINA TOOK UP LUGOL'S STAIN. ECC WAS OBTAINED. WILL CALL HER WITH RESULTS. REPEAT PAP TEST IN A YEAR. 06/19/2024 High risk heterosexual behavior (ICD-10 - Z72.51) GC & CHLAMYDIA TESTS WITH PAP SMEAR. No Urine 07/02/2024 Cervical high risk human papillomavirus (HPV) DNA test positive (ICD-10 - R87.810) 06/19/2024 Encounter for routine checking of intrauterine contraceptive device (ICD-10 - Z30.431) PELVIC ULTRASOUND WAS DONE TO CHECK IUD AND IT IS IN NORMAL POSITION. PAT WAS REASSURED. HER BLEEDING IS HER MENSTRUAL PERIOD AND NOT DUE TO A DISPLACED IUD. No Urine 06/19/2024 Other specified counseling (ICD-10 - Z71.89) SAFE SEX AND CAREFUL PARTNER SELECTION WERE DISCUSSED. No Urine Plan Of Treatment Pending Test Test Name Order Date Test, Urine 04/15/2024 Urinalysis 02/10/2020 Urinalysis 06/08/2022 ANTI-HEPATITIS C 01/05/2019 HEP. B SURF. AG 01/05/2019 THIN PREP,HPV IF ASCUS, CT/GC (21-29YR) 12/18/2017 SYPHILIS TESTING 01/05/2019 HIV AB-AG 4TH GENERATION 01/05/2019 Next Appt Details Provider Name:Marilin Cunha jasonmickie, 06/25/2025 02:40:00 PM, [address], [address], [place], [address], Insurance Providers Payer Name Payer Address Payer Phone Subscriber Number Group Number Insured Name Patient Relationship to Insured Coverage Start Date Coverage End Date [employer] [place] [address] [place] [address] [id number] JACKY MAGANA Self - patient is the insured Medical (General) History Medical History History ICD Code Migraine, unspecified, not intractable, with status migrainosus G43.901 Pelvic and perineal pain R10.2 Irritable bowel syndrome with diarrhea K 58.0 Other specified irregular menstruation N 92.5 Displacement of intrauterine contracepti ve device, initial encounter T83.32XA Atypical squamous cells of u ndetermined significance on cytologic smear of cervix (ASC-US) R87.610 Cervical high risk human papillomavirus (HPV) DNA test positive R87.810 Surgical History Surgery Date(Month/Year) Colonoscopy & Endoscopy 09/21/16
--- OUTSIDE RECORDS SUMMARY | 2025-03-03 08:13 | XMS_ITS | Patient Health Record ---
Author Organization [facility] Address [address] [place] [address] Care Team Providers Care All Terrain Vehicle Racer Name Role Phone Brody Pena MD Primary Care Provider Maggi Jeffries Unavailable [phone] Allergies Allergen (clinical drug ingredient) Drug/Non Drug [...] Treatment Pending Test Test Name Order Date [id number]-Zbpl Destruction, 05-2609/17/2016 [id number]-Xhgi Destruction, 05-2610/15/2016 [id number]-Pqlj Destruction, 05-2611/06/2016 18702-Jfsm Destruction, 05-2601/24/2018 Insurance Providers Payer Name Payer Address Payer Phone Subscriber Number Group Number Insured Name Patient Relationship to Insured Coverage Start Date Coverage End Date C[employer] [address] Max orJOSE [phone] [id number] Destiny Maxwell Self - patient is the insured Medical (General) History Medical History History ICD Code Anemia Back,Hip,and Knee pain Chicken pox Surgical History Surgery Date(Month/Year) tonsillectomy 05/2014 wisdom teeth extraction 05/2013
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
== END ==
LOC: HO.SL 08:09
PROVIDERS: PCP Family Medicine; Visit Provider Physician Assistant Medical
DX: G47.19 Other hypersomnia (principal)
CPT/HCPCS: 95806

== ENCOUNTER → 2025-03-03 10:00 | Outpatient (BNV) | payer BC, SELFPAY | PROVIDERS: PCP Family Medicine; Visit Provider Psychiatry & Neurology Neurology | DX: G47.33 Obstructive sleep apnea (adult) (pediatric) (principal) | CPT/HCPCS: 95806 ==

== ENCOUNTER 2025-04-01 14:36 | Outpatient (AMB) | payer BC, SELFPAY ==
--- OUTSIDE RECORDS SUMMARY | 2024-05-15 06:10 | XMS_ITS ---
Author Organization [facility] [employer] [facility] Address [address] [facility] [address] [place] [address] Care Team Providers Care Verifying Machine Operator Name Role Phone ISIDRA FITZPATRICK, FREDO Primary Care Provider Marilin Lambert Unavailable [phone] REASON FOR VISIT ULTRA- CK IUD Encounters Encounter Location Date Provider Diagnosis [facility] [address] [facility] [address] [place] [address] 05/15/2024 Marilin Christian Plan Of Treatment Next Appt Details Provider Name:Marilin ross, 06/25/2025 02:40:00 PM, [address] [facility], [address], [place], [address], Progress Notes * JACKY MAGANADOB:[birth year] (29 yo F)Acc No.[id number]:05/15/2024 PROGRESS NOTES Patient: JACKY BOYD Appointment Provider: Mirza Christian M.D. :1995 A ge:28 Y S ex:Female Date:05/15/2024 Address:[address] [place], [place] [id number] Pcp:FREDO MINER MD Subjective: * Chief Complaints: * 1 . ULTRA- CK IUD. * Medical History: Objective: * Vitals: Assessment: Plan: * Treatment: * Images: Billing Information: * Visit Code: * Procedure Codes: * Electronic signature of Jasiel Christian MD on 04/01/2025 at 07:57 PM EST Sign off status: Pending * Appointment Provider: Mirza Christian M.D. Date: 0 05/15/2024 Generated for Vidhi cervantes/Bob/Delmi on: 06/01/2024 07:57 PM EST
--- OUTSIDE RECORDS SUMMARY | 2024-05-19 03:00 | XMS_ITS ---
Author Organization [facility] [employer] Address [address] [facility] [address] [place] [address] Care Team Providers Care Roof Truss Machine Tender Name Role Phone ISIDRA FITZPATRICK, FREDO Primary Care Provider Marilin Lambert Unavailable [phone] REASON FOR VISIT CHECO IUD REPLACING KYLEENA Encounters Encounter Location Date Provider Diagnosis [facility] [employer] [address] [place] [address] 05/19/2024 Marilin Christian Plan Of Treatment Next Appt Details Provider Name:Marilin ross, 06/25/2025 02:40:00 PM, [address] [facility], [address], [place], [address], Progress Notes * JACKY MAGANADOB:[birth year] (29 yo F)Acc No.[id number]:05/19/2024 PROGRESS NOTES Patient: JACKY BOYD Appointment Provider: Mirza Christian M.D. :1995 A ge:28 Y S ex:Female Date:05/19/2024 Address:[address] [place] [address], [facility] Pcp:FREDO MINER MD Subjective: * Chief Complaints: * 1 . CHECO IUD REPLACING KYLEENA. * Medical History: Objective: * Vitals: Assessment: Plan: * Treatment: * Images: Billing Information: * Visit Code: * Procedure Codes: * Electronic signature of Jasiel Christian MD on 04/01/2025 at 07:58 PM EST Sign off status: Pending * Appointment Provider: Mirza Christian M.D. Date: 0 05/19/2024 Generated for Vidhi cervantes/Bob/Delmi on: 1 06/01/2024 07:58 PM EST
--- OUTSIDE RECORDS SUMMARY | 2024-06-19 10:10 | XMS_ITS ---
Author Organization [facility] [employer] [facility] Address [address] [facility] [address] [place] [address] Care Team Providers Care Industrial Sociologist Name Role Phone ISIDRA FITZPATRICK, FREDO Primary Care Provider Marilin Lambert Unavailable [phone] REASON FOR VISIT ULTRA- CK IUD Encounters Encounter Location Date Provider Diagnosis [facility] [employer] [address] [place] [address] 06/19/2024 Marilin Christian Plan Of Treatment Next Appt Details Provider Name:Marilin ross, 06/25/2025 02:40:00 PM, [address] [facility], [address], [place], [address], Progress Notes * JACKY MAGANADOB:[birth year] (29 yo F)Acc No.[id number]:06/19/2024 PROGRESS NOTES Patient: JACKY BOYD Appointment Provider: Mirza Christian M.D. :1995 A ge:28 Y S ex:Female Date:06/19/2024 Address:[address] [place], [place] [id number] Pcp:FREDO MINER MD Subjective: * Chief Complaints: * 1 . ULTRA- CK IUD. * Medical History: Objective: * Vitals: Assessment: Plan: * Treatment: * Images: Billing Information: * Visit Code: * Procedure Codes: * Electronic signature of Jasiel Christian MD on 04/01/2025 at 07:57 PM EST Sign off status: Pending * Appointment Provider: Mirza Christian M.D. Date: 0 06/19/2024 Generated for Vidhi cervantes/Bob/Delmi on: 06/01/2024 07:57 PM EST
--- OUTSIDE RECORDS SUMMARY | 2024-06-26 04:50 | XMS_ITS ---
Author Organization [employer] [facility] Address [address] [facility] [address] [place] [address] Care Team Providers Care Block Piler Name Role Phone ISIDRA FITZPATRICK, FREDO Primary Care Provider Marilin Lambert Unavailable [phone] REASON FOR VISIT IUD FOLLOW UP Encounters Encounter Location Date Provider Diagnosis [facility] [employer] [facility] [address] [facility] [facility] [address] [place] [address] 06/26/2024 Marilin Christian Plan Of Treatment Next Appt Details Provider Name:Marilin ross, 06/25/2025 02:40:00 PM, [address] [facility], [address], [place], [address], Progress Notes * JACKY MAGANADOB:[birth year] (29 yo F)Acc No.[id number]:06/26/2024 Progress Note Patient: JACKY BOYD Appointment Provider: Mirza Christian M.D. :1995 A ge:28 Y S ex:Female Date:06/26/2024 Address:[address] [place], [place] [id number] Pcp:FREDO MINER MD Subjective: * Chief Complaints: * 1 . IUD FOLLOW UP. * Medical History: Objective: * Vitals: Assessment: Plan: * Treatment: * Images: Billing Information: * Visit Code: * Procedure Codes: * Electronic signature of Jasiel Christian MD on 04/01/2025 at 07:57 PM EST Sign off status: Pending * Appointment Provider: Mirza Christian M.D. Date: 0 06/26/2024 Generated for Vidhi cervantes/Bob/Delmi on: 1 06/01/2024 07:57 PM EST
[2025-04-01 14:52] VITALS: BP 116/76; PULSE 74; O2SAT 97; BMI 20.5
--- NOTE | 2025-04-01 14:52 | A.OFFVIS_ITS ---
Vital Signs 04/01/25 14:52 Height 5 ft 4 in Weight 119 lb 6 oz BMI 20.5 BP 116/76 Blood Pressure Location Lt brachial Position Sitting Pulse 74 Pulse Source Pulse Oximeter Pulse Oximetry (%) 97 Oxygen Delivery Method Room Air Intake Visit Reasons: follow up Intake Note: Patient presents follow up KATHY. No labs HST in chart(AHI-5.3, MALKA-87%). what causes apnea and options for cpap. SOB more recently. Accompanied by: Self / Same As Patient Allergies oyster extract Allergy (Verified 04/01/25 14:55) Unknown peanut Allergy (Verified 04/01/25 14:55) Unknown Penicillins Allergy (Verified 04/01/25 14:55) Unknown HPI Comments Details: 29 year old female presents for a f/u of HST and KATHY. HST home study react c/w mild kathy, AHI-5.3, oxygen Nadirs to 83%. Will start her on cpap [id number] and monitor for compliance. She feels like she has air hunger, always feels SOB since childhood, denies asthma and was afraid to fall asleep due to fear of something bad will happen. She is seeing her therapist once a month now and continues to be anxious due to work and personal life events and a new little kitten along with dog tata. She snores loudly, has gained 20lbs, and wants to make time for the gym however is not able to. She has difficulty falling asleep at night, she takes THC or valerian tea at night to induce sleep. She has bruxims, no mouth guard. Her neck and jaw feel stiff, and tense with limited lateral ROM. Her mood is anxious, she has been depressed, she has ruminating thoughts, and feels paralyzed by the inability to make decisions. 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 She does not smoke, or drink alcohol. Denies morning headaches, acid reflux, flailing thrashing behavior, and parasomnias, she continues to talk in her sleep per her b/f. Denies use of stimulants MJ, edibles cigarettes. [facility] Social History Substance Use Type: Marijuana Physical Exam Vital Signs: Last Vital Signs Pulse 74 04/01/25 14:52 BP 116/76 04/01/25 14:52 Pulse Ox 97 04/01/25 14:52 Oxygen Delivery Method Room Air 04/01/25 14:52 BMI result Body Mass Index 20.5 Const General: cooperative and no acute distress Nutritional Appearance: overweight Orientation/consciousness: patient oriented x3 Limitations: no limitations HEENT Face and sinus: Yes face symmetric Mouth: other Teeth and gingiva: other ([place]i score is 3) Eyes Pupils: Equal, round and reactive pupils present Neck Other: pain on extension and flexion of neck with limited rom. Resp Effort & Inspection: normal respiratory effort and able to speak in complete sentences Neuro General: patient oriented x3 and moves all extremities Cranial nerves: Yes Facial sensation intact/muscles of mastication intact, Yes Equal, round and reactive pupils present, Yes Normal accommodation reflex present, Yes Bilaterally intact EOM present, Yes Ability to bilaterally rotate head present (limited rom on lateral rotation with stiffness on ext and flexion.) and Yes Ability to bilaterally elevate shoulders present Gait exam (Neuro): Normal gait present Motor exam (neuro): 5/5 motor strength present throughout and Normal motor muscle tone present throughout Psych Affect: normal affect Thought process: Normal thought process present Thought content: Normal thought content present Insight: Good insight present (Psych) Judgement: Good judgement present (Psych) Results Reviewed Results Reviewed: HST home study react c/w mild kathy, AHI-5.3, oxygen Nadirs to 83%. Will start her on cpap 5-13ofL59 and monitor for compliance. Assessment & Plan Assessment & Plan (1) KATHY (obstructive sleep apnea): Code(s): G47.33 - Obstructive sleep apnea (adult) (pediatric) Category: Medical (2) Sleep difficulties: Comment: HST Code(s): G47.9 - Sleep disorder, unspecified Category: Medical (3) Anxiety: Comment: lexapro 5mg po Code(s): F41.9 - Anxiety disorder, unspecified Category: Medical (4) Excessive daytime sleepiness: Code(s): G47.19 - Other hypersomnia Category: Medical Plan HST reviwed with pt she has mild KATHY will start her on cpap [id number] and monitor for compliance. rx to [facility] for nasal pillows. continue Melatonin 3mg po daily as needed to induce sleep. Labs reviewed with pt. Anxiety and depression with panic attacks, f/u with pcp for SSRI and or changes in medications. F/U in 3 months. Patient Instructions: Sleep Hygiene provided: set a scheduled bedtime and wake time to help regulate the circadian rhythm and balance the release of pituitary hormones. Sleep in a dark room, temperatures below 68 degrees, and no devices n bed. Limit caffeinated products 6 hours prior to bed, and limit fluids 2-4 hours prior to bed. Gentle night yoga, diffusing essential oils, and playing soft music can be relaxing. Coding Level of Care Code Est Pt Level 4 (05642) Diagnoses KATHY (obstructive sleep apnea) G47.33 Sleep difficulties G47.9 Anxiety F41.9 Excessive daytime sleepiness G47.19
--- OUTSIDE RECORDS SUMMARY | 2025-04-01 19:58 | XMS_ITS | Patient Health Record ---
Author Organization [facility] Address [address] [place] [address] Care Team Providers Care Board Certified Music Therapist Name Role Phone FREDO MINER MD Primary Care Provider Marilin Lambert [phone] Allergies Allergen (clinical drug ingredient) Drug/Non Drug Allergy documented on EMR Reaction Allergy Type Onset Date Status Penicillin Hives Drug Allergy Active Results Component Value Reference Range Notes SURGICAL PATHOLOGY Reviewed date:07/16/2024 08:19:56 AM Interpretation: Performing Lab:Testing performed or reported by [facility], a Service of [facility], [address] [place] [address] Indio Valencia MD, Engine [facility]# [id number] Notes/Report: Patient Name: JACKY MAGANA Lab Patient : 1995 (Age: 28) Collection Date: 07/02/2024 Accession Date: 07/02/2024 Sign Out Date: 07/15/2024 Tissue Source: 1:ECC Final Diagnosis: Endocervix, curettage: - Mucus and scant endocervical tissue fragments (see note). Note: The scant quantity of tissue received may not be promotions representative of the endocervix. Primary Pathologist:Lesa Carter M.D.,Ph.D. electronically signed out by: Lesa Carter M.D.,Ph.D. / [facility] [place] Clinical History: 28-year-old female, ASC-US, HPV DNA [...] specimen processing and staining is performed at [facility], [address] [place] [address] (CLIA#[id number]). Its performance characteristics determined by [facility]. Debby Dean M.D. Engine Builder of Surgical Pathology, Allen Angel M.D. [employer] Cyt[facility] Phone #: [phone], On-Call Pathologist: [id number] Test, Urine Reviewed date:07/02/2024 11:05:41 AM Interpretation: Performing Lab: Notes/Report: Test, Urine Negative PDF Report Reviewed date:06/25/2024 12:42:25 PM Interpretation: Performing Lab:[facility], [address] [place] [address], Phone - [phone], [facility] Notes/Report: Clinical Information:Vaginal/Cervical, LMP: 06/18, IUD Source.............Cervix;Vagina LMP / Prev Treat...ISV=[id number] Dates / Results....06/12/23 NIL Other..............IUD No. of containers..01 ThinPrep Vial [id number] IGP, CtNg Culture 30 Plus Reviewed date:06/25/2024 01:09:00 PM Interpretation: Performing Lab:[facility], [address] [place] [address], Phone - [phone], [facility]/Report: Clinical Information:Vaginal/Cervical, LMP: 06/18, IUD Source.............Cervix;Vagina LMP / Prev Treat...INK=[id number] Dates / Results....06/12/23 NIL Other..............IUD No. of containers..01 ThinPrep Vial DIAGNOSIS: EPITHELIAL CELL ABNORMALITY. ATYPICAL SQUAMOUS CELLS OF UNDETERMINED SIGNIFICANCE (ASC-US). Specimen adequacy: Satisfactory for evaluation. Endocervical and/or squamous metaplastic cells (endocervical component) are present. Clinician provided ICD10: Z01.419 Z72.51 Performed by: Homar Carmona , Timber Watchman (ASCP) Electronically signed by: Denis Law MD, [...] test positive, high risk on vaginal specimen ([id number]) Cervical high risk human papillomavirus (HPV) DNA test positive (R87.810) Active confirmed Problem Gynecological examination normal ([id number]) Encounter for gynecological examination (general) (routine) without abnormal findings (Z01.419) Active confirmed Problem Irregular Menstruation (49464034) Other specified irregular menstruation (N92.5) Active confirmed Vital Signs Heart Rate 78 /min 05/26/2024 Temperature 99.1 degrees Fahrenheit 07/02/2024 Blood pressure diastolic 78 mm Hg 07/02/2024 Height 64 in 07/02/2024 Blood pressure systolic 138 mm Hg 07/02/2024 Weight 208 lbs 07/02/2024 BMI 35.7 kg/m2 07/02/2024 Encounters Encounter Location Date Provider Diagnosis [address] [address] 05/15/2024 Marilin Christian Total [address] [address] 06/19/2024 Marilin Christian [address] [address] 04/15/2024 Marilin Christian Encounter for remova l and reinsertion of intrauterine contraceptive device Z30.[address] [address] 05/15/2024 Marilin Christian Encounter for routin e checking of intrauterine contraceptive device Z30.[address] [address] 05/26/2024 Marilinmanuel Christian Encounter for remova l and reinsertion of intrauterine contraceptive device Z30.[address] [address] 06/19/2024 Marilin Christian Encounter for gynecological examination (general) (routine) without abnormal findings Z01.419 ; High risk heterosexual behavior Z72.51 ; Encounter for routine checking of intrauterine contraceptive device Z30.431 and Other specified counseling Z71.[address] [place] [address] 07/02/2024 Marilin Christian Atypical squamous cells of undetermined significance on cytologic smear of cervix (ASC-US) R87.610 and Cervical high risk human papillomavirus (HPV) DNA test positive R87.[address] [address] 04/13/2024 Marilin Christian Total [address] [address] 05/15/2024 Marilin Christian [address] [address] 06/25/2024 Marilin Christian [address] [address] 06/30/2024 Marilin Christian Assessments Encounter Date Diagnosis [...] Name:Marilin Cunha jasonmickie, 06/25/2025 02:40:00 PM, [address], [place], [address], Insurance Providers Payer Name Payer Address Payer Phone Subscriber Number Group Number Insured Name Patient Relationship to Insured Coverage Start Date Coverage End Date [employer] [place] [address] [place] [address] [id number] JACKY MAGANA Self - patient is the [...]
--- OUTSIDE RECORDS SUMMARY | 2025-04-01 19:58 | XMS_ITS | Patient Health Record ---
Author Organization [facility] Address [address] [place] [address] Care Team Providers Care Escort Vehicle Driver Name Role Phone Brody Pena MD Primary Care Provider Maggi Jeffries Unavailable [phone] Allergies Allergen (clinical drug ingredient) Drug/Non Drug [...] Treatment Pending Test Test Name Order Date [id number] Destruction, 05-2609/17/2016 [id number] Destruction, 05-2610/15/2016 [id number] Destruction, 05-2611/06/2016 [id number] Destruction, 05-2601/24/2018 Insurance Providers Payer Name Payer Address Payer Phone Subscriber Number Group Number Insured Name Patient Relationship to Insured Coverage Start Date Coverage End Date [employer] [address] Max deJOSE [phone] [id number] Destiny Maxwell Self - patient is the insured Medical (General) History Medical History History ICD Code Anemia Back,Hip,and Knee pain Chicken pox Surgical History Surgery Date(Month/Year) tonsillectomy 05/2014 wisdom teeth extraction 05/2013
== END 2025-04-01 15:41 | disposition home or self-care (01) ==
LOC: HO.HSMS 14:36
PROVIDERS: PCP Family Medicine; Visit Provider Physician Assistant Medical
DX: G47.33 Obstructive sleep apnea (adult) (pediatric) (principal); G47.9 Sleep disorder, unspecified; F41.9 Anxiety disorder, unspecified; G47.19 Other hypersomnia
CPT/HCPCS: 99214